=== PATIENT | male | born 1975 | race African-American/Black ===

== ENCOUNTER 2016-10-07 16:25 | Emergency (ER) | payer MEDICARE, MEDICAID ==
[~2016-10-07 16:25] MED LIST: BACTRIM DS TAB1 EAC2 PO; BENZTROPINE MESY1 M1 PO; CLONAZEPAM2 M1 PO; DAILY VITE1 EACH PO; ESCITALOPRAM OX10 M1 PO; OLANZAPINE15 M1 PO; ZIPRASIDONE HCL80 M1 PO
[2016-10-07 18:38] LABS: URINE BILIRUBIN NEGATIVE (NEG); URINE BLOOD NEGATIVE (NEG); URINE GLUCOSE (UA) NEGATIVE (NEG); URINE KETONE SMALL (NEG); URINE LEUKOCYTE ESTERASE NEGATIVE (NEG); URINE NITRITE NEGATIVE (NEG); URINE PROTEIN NEGATIVE (NEG)
[2016-10-07 18:51] LABS: URINE APPEARANCE CLEAR; URINE COLOR YELLOW
[2016-10-07 19:10] LABS: BASO % 0.3 % (0-2); EOS % 1.2 % (0-7); EOSINOPHIL ABSOLUTE COUNT 0.1 tho/cmm (0.0-0.7); HCT-HEMATOCRIT 41.6 % (36.0-53.5); HGB-HEMOGLOBIN 14.1 gm/dl (13.5-17.0); IMMATURE GRANULOCYTES ABSOLUTE 0.01 tho/cmm (0-0.03); IMMATURE GRANULOCYTES PERCENT 0.2 % (0-0.3); LYMPH % 50.5 % (20-45); MCH (MEAN CORPUSCULAR HGB) 30.5 pg (28.0-32.0); MCHC MEAN CORPUSCULAR HGB CONC 33.9 % (32.0-36.0); MCV (MEAN CELL VOLUME) 89.8 fl (82.0-96.0); MEAN PLATELET VOLUME 9.8 cmc (9.4-12.4); MONOCYTE ABSOLUTE COUNT 0.3 tho/cmm (0.0-1.2); NEUTROPHIL ABSOLUTE COUNT 2.5 tho/cmm (1.6-8.0); NEUTROPHIL-AUTOMATED 2.5 tho/cmm (1.6-8.0); NEUTROPHILS % 42.8 % (40-80); PLATELET COUNT 272 tho/cmm (150-450); RED BLOOD COUNT 4.63 mil/cmm (4.40-5.70); WHITE BLOOD COUNT 5.8 tho/cmm (4.0-10.0)
[2016-10-07 19:30] LABS: ALB/GLOB RATIO 1.1 (0.8-2.0); ALBUMIN 3.9 g/dl (3.5-5.0); ALKALINE PHOSPHATASE 90 U/L (33-138); ALT/SGPT 22 U/L (12-78); ANION GAP 12 mmol/L (0-20); AST/SGOT 15 U/L (10-40); BILIRUBIN,TOTAL 0.4 mg/dl (0.0-1.5); BLOOD UREA NITROGEN 7 mg/dl (6-24); CALCIUM 8.7 mg/dl (8.5-10.5); CARBON DIOXIDE-VENOUS 28 mmol/L (22-32); CHLORIDE 109 mmol/l (96-110); CREATININE 1.09 mg/dl (0.60-1.30); GLUCOSE 91 mg/dL (70-110); POTASSIUM 3.7 mmol/L (3.7-5.1); SODIUM 145 mmol/L (135-145); eGFR VALUE FOR BLACK >90 mL/Min
== END 2016-10-07 19:46 ==
LOC: EDMED 16:25
PROVIDERS: Nurse Practitioner Family
DX: R53.83 Other fatigue (principal); F20.9 Schizophrenia, unspecified